=== PATIENT | male | born 1965 | race Hispanic/Latino ===

== ENCOUNTER → 2019-05-16 | Outpatient (CLI) | payer MEDICARE ==
--- NOTE | 2019-05-16 10:59 | Diagnostic Imaging Report ---
Left tib-fib series, 2 views. History: Osteomyelitis. Findings: Vascular opacifications are present. The bones are diffusely osteopenic. There is no evidence of fracture or dislocation. There is patchy sclerosis with periosteal thickening throughout the fibula. Degenerative changes are present at the ankle. Calcaneal spurs are noted. IMPRESSION: Findings suggestive of osteomyelitis involving the left fibula. Signed by: David Isbell on 05/16/2019 10:56 AM
== END ==
LOC: RAD 10:07
PROVIDERS: ATTEND Family Medicine
DX: I87.2 Venous insufficiency (chronic) (peripheral) (principal)

== ENCOUNTER 2019-06-06 16:43 | Outpatient (RCR) | payer MEDICARE | END 2019-07-05 | LOC: WCC 16:43 | PROVIDERS: ATTEND Family Medicine | DX: E11.622 Type 2 diabetes mellitus with other skin ulcer (principal); E11.42 Type 2 diabetes mellitus with diabetic polyneuropathy; M86.8X6 Other osteomyelitis, lower leg; I87.332 Chronic venous hypertension (idiopathic) with ulcer and inflammation of left lower extremity; I87.311 Chronic venous hypertension (idiopathic) with ulcer of right lower extremity; L97.826 Non-pressure chronic ulcer of other part of left lower leg with bone involvement without evidence of necrosis; L97.822 Non-pressure chronic ulcer of other part of left lower leg with fat layer exposed; L97.811 Non-pressure chronic ulcer of other part of right lower leg limited to breakdown of skin; B96.89 Other specified bacterial agents as the cause of diseases classified elsewhere; L03.116 Cellulitis of left lower limb; I70.203 Unspecified atherosclerosis of native arteries of extremities, bilateral legs; R60.0 Localized edema; M10.9 Gout, unspecified; I89.0 Lymphedema, not elsewhere classified; I10 Essential (primary) hypertension; D63.1 Anemia in chronic kidney disease; E66.01 Morbid (severe) obesity due to excess calories; K21.9 Gastro-esophageal reflux disease without esophagitis; E78.2 Mixed hyperlipidemia; I50.9 Heart failure, unspecified ==